=== PATIENT | male | born 1955 | race Caucasian/White ===

== ENCOUNTER 2018-06-12 17:25 | Emergency (ER) | payer SELFPAY ==
[2018-06-12 17:33] VITALS: BP 126/92; PULSE 70; RESP 12; TEMP 36.8; O2SAT 96
--- NOTE | 2018-06-12 18:16 | W.ED.GENAD ---
Discharge Plan Disposition Patient Disposition: HOME Condition: Improving Discharge Details Chief Complaint: GenMedical Clinical Impression: Atypical chest pain Primary Care Provider: Maria L Nolan ED Provider: Heriberto Manuel Home Meds and New Rx's Prescriptions: No Action No Known Home Meds RF: 0 Discharge Instructions Additional Instructions: I reviewed blood work from [facility] that was provided to me that revealed you had a lead venous blood level of 8.1 and 10.0 ug/dL. In adults, levels less than 20 recommend reduced lead exposure and ongoing monitoring. In adults this low level of lead may be due to occupational exposure. The department of Health and Human Services recommended adult lab levels be reduced to 10 or less. As we discussed, you have had a repeat blood level of lead performed today. I have asked our care management team to arrange an outpatient follow-up to establish primary allopathic medical care. They will contact you. Your blood work today revealed a white blood cell count of 6.8, hemoglobin 14.2, hematocrit 42.6, platelets 280. Sodium 139, potassium 3.7, chloride 104, bicarb 23, BUN 15, creatinine 0.9, glucose 94, total bilirubin 0.3, calcium 8.9, AST 23, ALT 39, troponin less than 0.02 Follow-up with primary care, return to the emergency department for any acute concerns or if you develop worsening discomfort in the chest, increased shortness of breath, or any other acute concern. Medical Decision Making Old 7-year-old male presents from home with his partner. 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 He states to me that he had reported blood levels of 8.1 and 10 ug/dL of lead for which he is currently taking 7 supplements. He does note that the lead level dann after beginning of the supplements. 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 He was somewhat agitated and anxious in the clinical office this morning and had an initial blood pressure that was elevated proximally 180/150, reported to be rechecked in the office and normalized, noted to have blood pressure 126/92 at triage. On exam he well-appearing. He is concerned of the cost of some of his work-up today. Due to the presentation with concern for hypertension, chest pressure, potential mild lead toxicity, I recommended chest x-ray, EKG, repeat blood work and referral to establish allopathic care. He wishes to avoid excess costs and declines chest x-ray. Labs are reassuring. Troponin negative, chemistries and CBC unremarkable, send out lab test pending. Patient will be referred to establish allopathic care. He is given the results of this test today. Did not feel, given his wishes to avoid chest x-ray, that there is indication for further work-up at this time. Understands homecare as well as return precautions. ECG Data Attestation: I personally reviewed and interpreted this ECG (s) as follows: Interpretation: Normal sinus rhythm with a rate of 66, the QRS is narrow, there is no ST segment elevation, there are frequent PACs in a bigeminal pattern. HPI General Mode of arrival: ambulatory. Date/Time Provider Initiated Documentation: 06/12/18 17:26. Limitations to Documentation: no limitations. Information obtained by: patient and family. History of Present Illness 62 year old M presents to the emergency department with the chief complaint of Referral from [employer]. Multiple concerns. Intermittent left chest pain, described as mild, Quality is described as dull, and is localized to the chest. Patient reports no radiation. Patient started experiencing this week(s) and it has been intermittent. No relieving factors improve symptom(s), No exacerbating factors reported . Patient notes other (Shortness of breath when carrying 80 pound bags of concrete upstairs). Patient did receive the following treatments prior to arrival, none Related Data Home Medications Medication Instructions Recorded Confirmed Unknown [No Known Home Meds] 06/12/18 06/12/18 Allergies Allergy/AdvReac Type Severity Reaction Status Date / Time codeine Allergy Unverified 06/12/18 17:36 General Stated Complaint: GenMedical FAZAL: 3 Review of Systems Review of Systems Taking 7 supplements from hand mica plate [employer] to lower lead level that was reported in referral blood work to be 8.1 and 10 mcg/dL [facility] Social History Smoking/Tobacco Use Status: Former Tobacco Use Quit Date: 05/23/99 Tobacco: How many years used: 18 Alcohol Intake: current Alcohol Intake frequency: 0-2 drinks per day Alcohol type: beer Drug use: Daily Substance use type: marijuana Do you feel safe at home: Yes Do you feel safe in your relationship?: Yes Exam Narrative Exam Narrative: GEN: awake, alert, oriented 3. Pleasant, well groomed, interactive. HEAD: Normocephalic, atraumatic ENT: Mucous membranes moist, oropharynx unremarkable, External ear exam unremarkable EYES: PERRL, EOMI NECK: Full ROM, no JOSE A, no menigismus CHEST/RESP: Nontender, clear to auscultation bilateral, no wheeze/rhonchi/rales CARDIOVASCULAR: RRR, no murmur, rub katarina. 2+ Rad pulse bilateral ABDOMEN: Soft, nontender, no mass. +Bowel sounds EXT: Full ROM, no edema, no rash Neuro: Grossly normal neurologic exam, conversant, interactive. Psych: Speech fluent, thoughts congruent, affect normal Course Vital Signs Temperature 36.8 C 06/12/18 17:33 Pulse 70 06/12/18 17:33 Respiratory Rate 12 06/12/18 17:33 Blood Pressure 126/92 H 06/12/18 17:33 Pulse Oximetry 96 06/12/18 17:33 Temperature 36.8 C 06/12/18 17:33 Temperature Source Temporal Artery Scan 06/12/18 17:33 Pulse 70 06/12/18 17:33 Respiratory Rate 12 06/12/18 17:33 Blood Pressure 126/92 H 06/12/18 17:33 Blood Pressure Position Sitting 06/12/18 17:33 Pulse Oximetry 96 06/12/18 17:33 Oxygen Delivery Method Room Air 06/12/18 17:33 Oxygen Flow Rate 0 06/12/18 17:33 Pain Level 6 06/12/18 17:33
--- NOTE | 2018-06-12 18:20 | ED.GENADUL_ITS ---
Discharge Plan Disposition Patient Disposition: HOME Condition: Improving Discharge Details Chief Complaint: GenMedical Clinical Impression: Atypical chest pain Primary Care Provider: Maria L Nolan ED Provider: Heriberto Manuel Home Meds and New Rx's Prescriptions: No Action No Known Home Meds RF: 0 Discharge Instructions Additional Instructions: I reviewed blood work from [employer] that was provided to me that revealed you had a lead venous blood level of 8.1 and 10.0 ug/dL. In adults, levels less than 20 recommend reduced lead exposure and ongoing monitoring. In adults this low level of lead may be due to occupational exposure. The department of Health and Human Services recommended adult lab levels be reduced to 10 or less. As we discussed, you have had a repeat blood level of lead performed today. I have asked our care management team to arrange an outpatient follow-up to establish primary allopathic medical care. They will contact you. Your blood work today revealed a white blood cell count of 6.8, hemoglobin 14.2, hematocrit 42.6, platelets 280. Sodium 139, potassium 3.7, chloride 104, bicarb 23, BUN 15, creatinine 0.9, glucose 94, total bilirubin 0.3, calcium 8.9, AST 23, ALT 39, troponin less than 0.02 Follow-up with primary care, return to the emergency department for any acute concerns or if you develop worsening discomfort in the chest, increased shortness of breath, or any other acute concern. Medical Decision Making Old 7-year-old male presents from home with his partner. 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 He states to me that he had reported blood levels of 8.1 and 10 ug/dL of lead for which he is currently taking 7 supplements. He does note that the lead level dann after beginning of the supplements. 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 He was somewhat agitated and anxious in the clinical office this morning and had an initial blood pressure that was elevated proximally 180/150, reported to be rechecked in the office and normalized, noted to have blood pressure 126/92 at triage. On exam he well-appearing. He is concerned of the cost of some of his work-up today. Due to the presentation with concern for hypertension, chest pressure, potential mild lead toxicity, I recommended chest x-ray, EKG, repeat blood work and referral to establish allopathic care. He wishes to avoid excess costs and declines chest x-ray. Labs are reassuring. Troponin negative, chemistries and CBC unremarkable, send out lab test pending. Patient will be referred to establish allopathic care. He is given the results of this test today. Did not feel, given his wishes to avoid chest x-ray, that there is indication for further work-up at this time. Understands homecare as well as return precautions. ECG Data Attestation: I personally reviewed and interpreted this ECG (s) as follows: Interpretation: Normal sinus rhythm with a rate of 66, the QRS is narrow, there is no ST segment elevation, there are frequent PACs in a bigeminal pattern. HPI General Mode of arrival: ambulatory . Date/Time Provider Initiated Documentation: 06/12/18 17:26 . Limitations to Documentation: no limitations . Information obtained by: patient and family . History of Present Illness 62 year old M presents to the emergency department with the chief complaint of Referral from [facility]. Multiple concerns. Intermittent left chest pain, described as mild, Quality is described as dull, and is localized to the [facility] [facility]. Patient reports no radiation. Patient started experiencing this week(s) and it has been intermittent. No relieving factors improve symptom(s), No exacerbating factors reported . Patient notes other (Shortness of breath when carrying 80 pound bags of concrete upstairs). Patient did receive the following treatments prior to arrival, none Related Data Home Medications Medication Instructions Recorded Confirmed Unknown [No Known Home Meds] 06/12/18 06/12/18 Allergies Allergy/AdvReac Type Severity Reaction Status Date / Time codeine Allergy Unverified 06/12/18 17:36 General Stated Complaint: GenMedical FAZAL: 3 Review of Systems Review of Systems Taking 7 supplements from cut in worker to lower lead level that was reported in referral blood work to be 8.1 and 10 mcg/dL [facility] Social History Smoking/Tobacco Use Status: Former Tobacco Use Quit Date: 05/23/99 Tobacco: How many years used: 18 Alcohol Intake: current Alcohol Intake frequency: 0-2 drinks per day Alcohol type: beer Drug use: Daily Substance use type: marijuana Do you feel safe at home: Yes Do you feel safe in your relationship?: Yes Exam Narrative Exam Narrative: GEN: awake, alert, oriented 3. Pleasant, well groomed, intera ctive. HEAD: Normocephalic, atraumatic ENT: Mucous membranes moist, oropharynx unremarkable, External ear exam unremarkable EYES: PERRL, EOMI NECK: Full ROM, no JOSE A, no menigismus CHEST/RESP: Nontender, clear to auscultation bilateral, no wheeze/rhonchi/rales CARDIOVASCULAR: RRR, no murmur, rub katarina. 2+ Rad pulse bilateral ABDOMEN: Soft, nontender, no mass. +Bowel sounds EXT: Full ROM, no edema, no rash Neuro: Grossly normal neurologic exam, conversant, interactive. Psych: Speech fluent, thoughts congruent, affect normal Course Vital Signs Temperature 36.8 C 06/12/18 17:33 Pulse 70 06/12/18 17:33 Respiratory Rate 12 06/12/18 17:33 Blood Pressure 126/92 H 06/12/18 17:33 Pulse Oximetry 96 06/12/18 17:33 Temperature 36.8 C 06/12/18 17:33 Temperature Source Temporal Artery Scan 06/12/18 17:33 Pulse 70 06/12/18 17:33 Respiratory Rate 12 06/12/18 17:33 Blood Pressure 126/92 H 06/12/18 17:33 Blood Pressure Position Sitting 06/12/18 17:33 Pulse Oximetry 96 06/12/18 17:33 Oxygen Delivery Method Room Air 06/12/18 17:33 Oxygen Flow Rate 0 06/12/18 17:33 Pain Level 6 06/12/18 17:33
[2018-06-12 18:25] VITALS: RESP 12
[2018-06-12 19:02] LABS: Abs Immature Grans 0.02 k/cumm (0.0-0.09); Absolute Basophil Count 0.06 k/cumm (0.0-0.2); Absolute Eosinophil Count 0.27 k/cumm (0.0-0.7); Absolute Monocyte Count 0.65 k/cumm (0.11-0.7); Absolute Neutrophil Count 3.86 k/cumm (1.2-6.7); Basophils % 0.9; Eosinophils % 3.9; HCT 42.6 % (40.0-50.0); HGB 14.2 g/dL (13.5-17.5); Immature Grans % 0.3; Lymphocytes % 29.2; Mean Corp. HGB Concentration 33.3 g/dL (32.0-36.0); Mean Corpuscular Hemoglobin 29.7 pg (27.0-33.0); Mean Corpuscular Volume 89.1 fL (80-95); Monocytes % 9.5; Neutrophils % 56.2; Platelet Count 280 x1000/uL (130-400); RBC 4.78 m/cumm (4.50-6.00); RBC Distribution Width 12.5 % (11.8-14.1); White Blood Cell Count 6.86 k/cumm (4.4-10.8)
[2018-06-12 19:04] VITALS: BP 139/76; PULSE 71; RESP 18; TEMP 37.2; O2SAT 95
[2018-06-12 19:15] LABS: ALT 39 U/L (12-78); AST 23 U/L (15-37); Albumin 3.9 g/dL (3.4-5.0); Alkaline Phosphatase 59 U/L (46-116); Anion Gap 11.2 mmol/L (3-11); BUN 15 mg/dL (7-18); Bilirubin, Total 0.3 mg/dL (0.2-1.0); CO2 23.8 mmol/L (21.0-32.0); Calcium 8.9 mg/dL (8.5-10.1); Chloride 104 mmol/L (98-107); Glucose 94 mg/dL (70-100); Potassium 3.7 mmol/L (3.5-5.1); Sodium 139 mmol/L (136-145); Total Protein 7.2 g/dL (6.4-8.2)
[2018-06-12 19:19] LABS: Troponin I < 0.02 ng/mL (0.00-0.06)
== END 2018-06-12 19:50 | disposition home or self-care (01) ==
PROVIDERS: Emergency Provider Emergency Medicine; PCP Naturopath
DX: R07.89 Other chest pain (principal); R06.02 Shortness of breath; R78.71 Abnormal lead level in blood
CPT/HCPCS: 36415; 80053; 93005; 99284; 83655; 84484; 85025; 93010

== ENCOUNTER → 2022-12-06 16:44 | Outpatient (CLI) | payer MEDICARE, SELFPAY ==
--- NOTE | 2022-12-06 15:15 | DI.RAD_ITS ---
Exam(s) XR SHOULDER RT COMPLETE 2+V EXAM: XR SHOULDER RT COMPLETE 2+V CLINICAL HISTORY: RT SHOULDER PAIN, M25.511. TECHNIQUE: 2D digital imaging was performed of the right shoulder. Five images were obtained. AP, Grashey, Y-view and axillary views were obtained. COMPARISON: No exams were available for comparison FINDINGS: BONES: No acute fracture is present. No bony destructive lesion is seen. JOINTS: No dislocation present. There is mild spurring at the inferior glenoid. There acromioclavicu lar joint is well maintained. SOFT TISSUE: Normal. IMPRESSION: Mild degenerative changes seen at the glenohumeral joint. DATA REPOSITORY: RADIATION DOSE DELIVERED:
--- NOTE | 2022-12-06 15:15 | DI.RAD_ITS ---
Exam(s) XR SHOULDER LT COMPLETE 2+V EXAM: XR SHOULDER LT COMPLETE 2+V CLINICAL HISTORY: LT SHOULDER PAIN, M25.512. TECHNIQUE: 2D digital imaging was performed of the left shoulder. Five images were obtained. AP, G rashey, Y-view and axillary views were obtained. COMPARISON: No exams were available for comparison FINDINGS: BONES: No acute fracture is present. No bony destructive lesion is seen. There is mild spurring at th e humeral head. JOINTS: No dislocation present. The glenohumeral joint and acromioclavicular joint are unremarkable. SOFT TISSUE: Normal. IMPRESSION: No acute fracture or dislocation. If there is concern for internal derangement, an MRI should be con sidered for further evaluation. DATA REPOSITORY: RADIATION DOSE DELIVERED:
== END ==
PROVIDERS: PCP Naturopath; Visit Provider Family Medicine
DX: M25.512 Pain in left shoulder (principal); M25.511 Pain in right shoulder
CPT/HCPCS: 73030

== ENCOUNTER 2023-08-03 22:33 | Outpatient (REF) | payer MEDICARE, SELFPAY ==
[2023-08-03 22:43] LABS: HCT 47.8 % (40.0-50.0); HGB 15.8 g/dL (13.5-17.5); MCH 30.4 pg (27.0-33.0); MCHC 33.1 % (32.0-36.0); MCV 92 fL (80-95); MPV 9.6 fL (8.0-11.0); Platelet Count 353 10^3/uL (130-400); RBC 5.19 10^6/uL (4.36-5.78); RDW 12.2 % (11.8-14.1); RDW-SD 41.2 fL; WBC 16.03 10^3/uL (4.4-10.8)
[2023-08-03 22:59] LABS: Hemoglobin A1C 5.7 % (<5.7)
[2023-08-03 23:07] LABS: ALT 33 U/L (16-63); AST 18 U/L (15-37); Absolute Eosinophil Count 0.64 10^3/uL (0.0-0.7); Absolute Lymphocyte Count 2.56 10^3/uL (1.2-3.4); Absolute Monocyte Count 2.08 10^3/uL (0.1-0.8); Absolute Neutrophil Count 10.74 10^3/uL (1.2-6.7); Albumin 4.1 g/dL (3.4-5.0); Alkaline Phosphatase 76 U/L (46-116); Anion Gap 13.1 mmol/L (3-11); Atypical Lymphocytes % 2 %; BUN 10 mg/dL (7-18); Bilirubin, Total 0.9 mg/dL (0.2-1.0); CO2 23.9 mmol/L (21.0-32.0); CREATININE 0.9 mg/dL (0.70-1.30); Calcium 9.6 mg/dL (8.5-10.1); Chloride 100 mmol/L (98-107); Diff Comment Manual Differential; Estimated GFR 94.19 (mL/min/1.73m2); Glucose 121 mg/dL (74-106); Potassium 4.3 mmol/L (3.5-5.1); RBC Morphology Normal; Sodium 137 mmol/L (136-145); TSH (W/Ref FT4) 1.02 uIU/mL (0.36-3.74); Total Protein 7.6 g/dL (6.4-8.2)
== END 2023-08-03 22:34 | disposition home or self-care (01) ==
LOC: NCHCN 22:33
PROVIDERS: PCP Naturopath; Visit Provider Physician Assistant Medical
DX: R10.9 Unspecified abdominal pain (principal)
CPT/HCPCS: 80053; 83036; 84443; 85025

== ENCOUNTER → 2023-08-04 00:20 | Outpatient (CLI) | payer MEDICARE, SELFPAY ==
--- NOTE | 2023-08-04 | DI.CT_ITS ---
Exam(s) CT ABDOMEN PELVIS W EXAM: CT ABDOMEN PELVIS W CLINICAL HISTORY: R10.9 Unspecified abd pain TECHNIQUE: Imaging Protocol: Axial computed tomography images with coronal and sagittal reformatted images were created and reviewed. CONTRAST MATERIAL: Intravenous: Omnipaque 350 Contrast volume:100 mL Oral: Yes COMPARISON: No exams were available for comparison FINDINGS: ABDOMEN: Lung Bases: There is dependent atelectasis present. No focal consolidating infiltrates are seen. Liver: Normal density. There are several simple hepatic cysts. No suspicious hepatic masses are pres ent. Portal, Superior Mesenteric, and Splenic Veins: Unremarkable. Gallbladder and Biliary Tract: No radiodense calculus or dilation. Pancreas: Normal density, no abnormal calcifications or inflammatory process. Spleen: There are few tiny hypodensities in the spleen. These may represent small cysts or hemangiom as. Adrenals: No masses seen. Kidneys: Normal size, contour and axis. No radiodense stones or obstructive uropathy. There are tiny hypodensities seen in the kidneys bilaterally likely reflecting cysts. No follow-up is recommended. Abdominal Aorta: Abdominal portion non-dilated. Atherosclerotic calcification is present. Bowel: There are diverticula seen in the colon. There is bowel wall thickening seen in the mid sigmo id colon with pericolonic inflammatory changes most consistent with acute diverticulitis. There is n o evidence of bowel obstruction. No evidence of appendicitis. Peritoneal Cavity: No ascites, collection or mesenteric inflammatory response. No free air. Lymph Nodes: Within normal limits. Bones: Within normal limits for the patient's age. Soft Tissues: Unremarkable. PELVIS: Bladder: There is diffuse wall thickening of the urinary bladder. Reproductive Organs: The prostate gland is enlarged. Lymph Nodes: Within normal limits. Bones: Within normal limits for the patient's age. IMPRESSION: 1. Findings most suggestive of acute diverticulitis of the mid sigmoid colon. No abscess or free air . A follow-up CT scan is recommended to document resolution and to exclude underlying process such a s neoplasm. 2. Diffuse thickening of the wall of the urinary bladder. This may reflect inflammation from the adj acent diverticulitis. This may also be due to underdistention. Unexpected findings RADIATION DOSE DELIVERED: Total DLP DATA REPOSITORY: All CT scans at this facility are submitted to the National Radiology Data Registry (NRDR) Dose Index Registry (DIR) with the [employer] (ACR). RADIATION OPTIMIZATION: All CT scans at this facility use at least one of these dose optimization te chniques: automated exposure control; mA and/or kV adjustment per patient size (includes targeted exa ms where dose is matched to clinical indication); or iterative reconstruction.
--- NOTE | 2023-08-04 | DI.RAD_ITS ---
Exam(s) XR CHEST 2V PA LATERAL EXAM: XR CHEST 2V PA LATERAL CLINICAL HISTORY: J98.01 Acute Bronchospasm TECHNIQUE: 2D digital imaging was performed of the chest. Two images were obtained. PA and lateral views were obtained. COMPARISON: No exams were available for comparison FINDINGS: MEDIASTINUM: Normal. HEART: Normal. PULMONARY VASCULATURE: Normal. LUNGS: Clear. PLEURAL SPACE: No pleural effusion or pneumothorax. BONE:Within normal limits for the patient's age. OTHER FINDINGS:Normal. IMPRESSION: No acute pulmonary findings. DATA REPOSITORY: RADIATION DOSE DELIVERED:
[2023-08-04] MEDS: Normal Saline - Diluent 50 ML VIAL IJ (10:27)
[2023-08-04] MEDS: Omnipaque 350 MG/ML 500 ML BTL-Imaging package IJ (10:27)
[2023-08-04] MEDS: Barium Sulfate 2% W/V-Berry Smoothie 450 ML BTL PO ×2 (10:38→10:39)
== END ==
PROVIDERS: PCP Naturopath; Visit Provider Physician Assistant Medical
DX: J98.01 Acute bronchospasm (principal); R10.9 Unspecified abdominal pain
CPT/HCPCS: 71046; 74177

== ENCOUNTER → 2023-08-23 02:09 | Outpatient (CLI) | payer MEDICARE, SELFPAY ==
--- NOTE | 2023-08-23 | DI.CT_ITS ---
Exam(s) CT ABDOMEN PELVIS W EXAM: CT ABDOMEN PELVIS W CLINICAL HISTORY: ABD PAIN, R10.9. TECHNIQUE: Imaging Protocol: Axial computed tomography images with coronal and sagittal reformatted images were created and reviewed CONTRAST MATERIAL: Intravenous: Omnipaque-350 100cc Oral: Yes. Oral contrast was also administered for bowel opacification. COMPARISON: CT CT ABDOMEN PELVIS W from 08/04/2023 FINDINGS: VISUALIZED LUNG BASES: No nodules nor pleural effusions evident. ABDOMEN: There is no ascites. LIVER: Benign cysts in the liver again noted. No evidence of intrahepatic abscess. No dilated intra hepatic ducts. GALLBLADDER/BILIARY: No obvious gallbladder pathology. CBD is not dilated. PANCREAS: No evidence of pancreatic mass nor dilatation of the pancreatic duct. SPLEEN: Spleen is not enlarged. No obvious intrasplenic lesions. Splenic and portal veins are paten t. ADRENALS: There are no significant adrenal masses. KIDNEYS:No cysts evident. No solid renal masses. No calculi nor hydronephrosis.. ABDOMINAL AORTA: Abdominal aorta is not enlarged. LYMPH NODES:There is no retroperitoneal nor paraaortic adenopathy. ABDOMINAL WALL: No evidence of significant anterior abdominal wall nor inguinal hernia. GI: There is extensive diverticulosis of the sigmoid again noted but there has been significant impro vement in the appearance of the area of the sigmoid involved with acute diverticulitis as seen on the CT scan of 08/04/2023. The amount of wall thickening and surrounding inflammation has significantly decreased and there is no evidence of abscess. The wall of the urinary bladder is again noted be uniformly thickened but there is no evidence to sug gest fistulous communication between the urinary bladder and the area which was involved with acute d iverticulitis on the scan of 08/04/2023 (which now appears improved). PELVIS: GI: No evidence of appendicitis. LYMPH NODES: There is no intrapelvic nor inguinal adenopathy. REPRODUCTIVE: Prostate is again noted to be enlarged. No vesicles unremarkable. There is no obturat or adenopathy. URINARY BLADDER: Uniformly thickened wall. No diverticuli.. OSSEOUS: No fractures and no significant osseous lesions. IMPRESSION: 1. Compared to the prior CT scan of 08/04/2023 there has been significant improvement in the acute di verticulitis of the sigmoid which was evident at that time. There is still extensive sigmoid diverti culosis but the acute diverticulitis has significantly improved and there is no evidence of free air nor abscess nor evidence of fistulous communication to the adjacent urinary bladder. There is no gas within the portal venous system and no evidence of abscess within the liver, realizing that divertic ulitis is the most common cause of liver abscesses in [place]. 2. Other findings as above. RADIATION DOSE DELIVERED: 636.47mGy.cm Total DLP DATA REPOSITORY: All CT scans at this facility are submitted to the National Radiology Data Registry (NRDR) Dose Index Registry (DIR) with the [employer] (ACR). RADIATION OPTIMIZATION: All CT scans at this facility use at least one of these dose optimization te chniques: automated exposure control; mA and/or kV adjustment per patient size (includes targeted exa ms where dose is matched to clinical indication); or iterative reconstruction.
[2023-08-23] MEDS: Barium Sulfate 2% W/V-Creamy Vanilla Smoothie 450 ML BTL PO ×2 (09:22→09:23)
[2023-08-23] MEDS: Normal Saline - Diluent 50 ML VIAL IJ (09:29)
[2023-08-23] MEDS: Omnipaque 350 MG/ML 500 ML BTL-Imaging package IJ (09:29)
== END ==
PROVIDERS: PCP Naturopath; Visit Provider Physician Assistant Medical
DX: R10.9 Unspecified abdominal pain (principal)
CPT/HCPCS: 74177

== ENCOUNTER → 2023-08-24 07:52 | Outpatient (BNVA) | payer MEDICARE, SELFPAY | PROVIDERS: PCP Naturopath; Referring Provider Naturopath; Visit Provider Physician Assistant Surgical | DX: J98.01 Acute bronchospasm (principal); R06.00 Dyspnea, unspecified | CPT/HCPCS: 99205 ==

== ENCOUNTER 2023-09-19 18:35 | Outpatient (REF) | payer MEDICARE, SELFPAY | END 2023-09-19 18:36 | disposition home or self-care (01) | LOC: NCHCN 18:35 | PROVIDERS: PCP Naturopath; Visit Provider Family Medicine | DX: R10.30 Lower abdominal pain, unspecified (principal); R82.998 Other abnormal findings in urine | CPT/HCPCS: 87086 ==

== ENCOUNTER 2023-11-02 14:19 | Emergency (ER) | payer MEDICARE, SELFPAY ==
[2023-11-02] VITALS (9 sets, daily range): BP systolic 122–148; BP diastolic 74–82; PULSE 58–86; RESP 12–28; TEMP 36.4; O2SAT 95–97
--- NOTE | 2023-11-02 14:22 | W.ED.GENAD ---
Discharge Plan Disposition Patient Disposition: Home Condition: Good Discharge Details Clinical Impression: Blunt trauma of abdominal wall, Traumatic ecchymosis of abdominal wall Primary Care Provider: Maria L Nolan ED Provider: Gregor Mena Home Meds and New Rx's Prescriptions: No Action No Known Home Meds Discharge Instructions Instructions: Blunt Abdominal Trauma ED Additional Instructions: You were seen in the ED after a blow to the abdomen. Laboratory studies and imaging studies are reassuring and injury is isolated to the abdominal wall. There is no evidence of internal organ damage. Ice on and off for the next few days and alternate acetaminophen with ibuprofen. Follow-up with primary care next week if not improving. You should return to the ED for any difficulty breathing, syncope, worsening abdominal pain, other concerns. Referrals: Maria L Nolan [Primary Care Provider] - [facility] General Mode of arrival: wheelchair. Date/Time Provider Initiated Documentation: 11/02/23 14:22. Limitations to Documentation: no limitations. Information obtained by: patient and RN notes reviewed. HPI Narrative: Patient presents to ED with abdominal pain after being struck in the right upper abdomen by board kicked back from a table saw. Injury occurred about 1 hour ago. He already has imprint from the board on his abdomen with associated swelling and ecchymosis. He has difficulty taking a breath because of pain. Denies any significant past medical history. He is not on any medications. Denies any injury to head and neck area or extremities. Related Data Home Medications ?Medication ?Instructions ?Recorded ?Confirmed Unknown [No Known Home Meds] 08/24/23 11/02/23 Allergies Allergy/AdvReac Type Severity Reaction Status Date / Time codeine Allergy vomiting Unverified 11/02/23 14:33 General FAZAL: 3 Review of Systems Narrative: Per HPI Exam Narrative Exam Narrative: Const: WDWN male in NAD. VS per triage. HEENT: NC/AT. Normal facial exam. Neck: Supple. Trachea midline. Lungs: Normal respiratory effort. Lungs are clear. Cor: RRR without murmur. Good radial pulses. GI: Soft/ND. Tender in RUQ over area with bruising, swelling. No peritoneal signs. Neuro: A+O x 3. Normal speech, mentation, gait. Cranial nerves II - XII grossly intact. No gross motor or sensory deficit. Ext: No C/C/E. Medical Decision Making Patient presenting to ED with blunt force trauma to the upper abdomen and right upper quadrant. Bruising and swelling already present in the abdominal wall. Concern for liver injury, bowel injury, diaphragmatic injury. IV established and fluids started. Patient declines anything for pain other than IV acetaminophen. Laboratory studies sent. CT scan of the thorax ordered. Patient's laboratory studies are unremarkable. CT of the abdomen pelvis per final radiology read with no acute traumatic injury. Injury is all related to the abdominal wall with bruising and ecchymosis. Discussed with patient. Recommend ice on and off, alternating acetaminophen with ibuprofen, follow-up with primary care next week if not improving. Activity as tolerated. Return precautions provided. Lab Data Lab results reviewed: Yes I reviewed the patient's lab results. 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 History of appendectomy Hx of cataract surgery Hx of hernia repair Family History (Updated 08/11/23 @ 11:35 by Eve Carrillo) Mother Diabetes type 2 Hypertension Father Leukemia Family history of polycythemia vera Other ETOHism FHx: mental illness Social History Smoking/Tobacco Use Status: Former Tobacco Use Quit Date: 05/23/99 Tobacco: How many years used: 18 Smoking risk assessment performed?: Yes Alcohol Intake: current Alcohol Intake frequency: 0-2 drinks per day Alcohol type: beer Drug use: Daily Substance use type: marijuana Housing: house 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 Do you feel safe at home: Yes Do you feel safe in your relationship?: Yes
--- NOTE | 2023-11-02 14:30 | DI.CT_ITS ---
Exam(s) CT CHEST/ABD/PEL W EXAM: CT CHEST/ABD/PEL W CLINICAL HISTORY: blunt upper abdominal trauma. TECHNIQUE: Imaging Protocol: Axial computed tomography images with coronal and sagittal reformatted images were created and reviewed CONTRAST MATERIAL: Intravenous: Omnipaque 350 Contrast volume:100 ml Oral: / no COMPARISON: CR XR CHEST 2V PA LATERAL from 08/04/[address] ABDOMEN PELVIS W from 08/23/2023 FINDINGS: CHEST: Tracheobronchial tree: Patent. Pulmonary parenchyma: No consolidation or dominant measurable mass. Small focal area of scarring in noted inferior lingular posterior dependent changes. No visible contusion. Pleura: No effusion or pneumothorax. Mediastinum: Within normal limits. Aorta: Thoracic portion non-dilated. Pulmonary arteries: No visible emboli. Heart: No pericardial effusion. Bones: Unremarkable for age. Degenerative changes in the spine.. No lytic or blastic lesions.No com pression fractures. A subacute appearing fractures of the left 6 through 9th ribs. No acute rib fra ctures visible. No sternal fracture. Soft tissues: Unremarkable. ABDOMEN and PELVIS: Liver: Normal density. Several liver cysts noted. No follow-up recommended. No suspicious mass. Gallbladder and biliary tract: No evidence of stones or wall thickening. No biliary dilatation. Pancreas: Normal density, no abnormal calcifications or inflammatory process. Spleen: Normal. Kidneys: Normal size, contour and axis. No radiodense stones. No obstructive uropathy. No suspicious masses seen. Adrenal glands: No masses seen. Aorta: Abdominal portion non-dilated. Lymph nodes: Within normal limits. Soft tissues: Unremarkable. Bladder: Unremarkable. Bowel: No obstruction or bowel wall thickening. Diverticulosis. No evidence of diverticulitis. Ch est Peritoneal cavity: No ascites. No focal collection. No mesenteric inflammatory response. No free ai r. Bones: No evidence of spine or pelvic fracture. Degenerative changes noted greatest at L5-S1. Reproductive organs: Within normal limits. IMPRESSION: No acute abnormality in the chest, abdomen or pelvis. RADIATION DOSE DELIVERED: 287.51mGy.cm Total DLP DATA REPOSITORY: All CT scans at this facility are submitted to the National Radiology Data Registry (NRDR) Dose Index Registry (DIR) with the [employer] ([employer]). RADIATION OPTIMIZATION: All CT scans at this facility use at least one of these dose optimization te chniques: automated exposure control; mA and/or kV adjustment per patient size (includes targeted exa ms where dose is matched to clinical indication); or iterative reconstruction.
[2023-11-02 14:45] LABS: HCT 44.8 % (40.0-50.0); HGB 14.9 g/dL (13.5-17.5); MCH 30.2 pg (27.0-33.0); MCHC 33.3 % (32.0-36.0); MCV 91 fL (80-95); MPV 8.6 fL (8.0-11.0); Platelet Count 329 10^3/uL (130-400); RBC 4.94 10^6/uL (4.36-5.78); RDW 12.1 % (11.8-14.1)
[2023-11-02] MEDS: ACETAMINOPHEN 1,000 MG/100 ML BTL 400 MG IVPB (14:49)
[2023-11-02] MEDS: Lactated Ringers 1,000 ML 1000 ML IV (14:52)
[2023-11-02 14:58] LABS: Prothrombin Time 10.2 sec (9.1-11.1)
--- OUTSIDE RECORDS SUMMARY | 2023-11-02 14:58 | XMS_ITS | Data Portability ---
Author Organization [facility] Address [address] [place] [address] Assessment Encounter Date Assessment Date Assessment LastModified by Organization Details LastModified Time 09/19/2023 09/19/2023 - declines labs today - declines vaccines - A1C 5.7% 07/2023 [email or web address] Not available 09/19/2023 17:46:52 Plan of Treatment Reminders Order Date Submit Date Provider Last Modified By Organization Details Last Modified Time Details Appointments None recorded. Lab CBC w/ auto diff 2023 024 PEDRO Not available 4 23:10:50 CMP, serum or plasma 2023 024 PEDRO Not available 4 23:09:42 TSH, serum, reflex free T4 2023 024 PEDRO Not available 4 08:35:02 HbA1c (hemoglobi n A1c), blood 2023 024 PEDRO Not available 4 08:34:54 urinalysis , dipstick 2023 024 [email or web address] [facility], [address], [place], [address], 4 17:47:50 culture, urine + sensitivit y 2023 024 [place] n21 [facility] (Registration ), [address] [place] [address] [place], [address], 4 07:32:41 Referral pulmonolog ist referral 2023 024 [facility], [address], [place], [address], 4 17:00:28 physical therapist referral - Patient has been experienci ng bilateral shoulder pain after fall 2 quezada ago. Reports underlying rotator cuff injury. Not ready to have surgical interventi on, would like to explore other physical therapy options 2023 024 [facility], [address], [address], [place], [address], 4 07:41:56 gastroente rologist referral - pt is due for colonoscop y and may benefit from EGD for dysphagia evaluation at same time - previous GI records not available. 2023 024 [facility], [address], [address], [place], [address], 4 08:00:58 urologist referral 2023 024 [place] n21 [facility], [address], [address], [place], [address], 4 07:06:51 Procedures None recorded. Surgeries None recorded. Imaging XR, chest, 2 view 2023 024 [facility], [address], [place], [address], 4 08:34:39 CT, abdomen + pelvis, w/ contrast 2023 024 [facility], [address], [place], [address], 4 13:02:00 Medication Orders albuterol sulfate 2.5 mg/3 mL (0.083 %) solution for nebulizati on 2023 024 Not available 13:05:02 albuterol sulfate HFA 90 mcg/actuat ion aerosol inhaler 2023 024 PEDRO [facility], [address] [place], [address], 4 13:05:20 albuterol sulfate 2.5 mg/3 mL (0.083 %) solution for nebulizati on 2023 024 Not available 13:05:02 amoxicilli n 875 mg-potassi um clavulanat e 125 mg tablet 2023 024 PEDRO [facility], [address] [place], [address], 13:05:26 Patient TargetsNo targets recorded. Patient Instructions Encounter Date Encounter Id Patient Instructions Last Modified By Organization Details Last Modified Time 08/03/2023 [id number] 1. Please continue to push fluids and laxatives as well as fruit and fiber in an attempt to help move bowel. If abdominal pain is increasing, you are not able to have bowel movement or you are not able to return to eating without vomiting you will need to go to the emergency department for further evaluation. 2. It is your hope that you will not need to go to the emergency department. If things are not improving yet have not worsened we should get a CT scan for further evaluation. I have ordered that on an outpatient basis and you should expect the imaging department to contact you to arrange a time to do the CT scan and the chest x-ray. Please remember the only caveat to all of this is with any degree of worsening you need to not hesitate to go to the emergency department. Sometimes these can result in a obstruction further up requiring surgical intervention 3. While here you were given a nebulized albuterol treatment and I have sent prescription for an albuterol inhaler and spacer to your pharmacy. You can use this every 4 hours as needed for coughing fits, shortness of breath or wheeze. I have also ordered a chest x-ray and I expect will have results tomorrow. Once I have these available for review we will be able to determine if you can wait to see the primary care for follow-up or if we need to send referral to pulmonology. 4. Blood work obtained today will have results tomorrow. You should expect to hear from me to go over those. These are some basic screening labs she will need to get some additional labs with primary care. 5. I have also sent referral to physical therapy to help address some of the shoulder pain. This is at the [facility]. [email or web address] Not available 08/03/2023 16:35:21 Reason for Referral Physical Therapist Referral for Bilateral shoulder joint pain Patient has been experiencing bilateral shoulder pain after fall 2 quezada ago. Reports underlying rotator cuff injury. Not ready to have surgical intervention, would like to explore other physical therapy options Referring Physician: Maricarmen Sanchez [facility], Encounter Date: 08/03/2023 Director News Referral for B ronchospasm Referring Physician: Maricarmen Sanchez [facility], Encounter Date: 08/03/2023 Urologist Referral for Blood in urine Referring Physician: Vicky Crystal [facility], Encounter Date: 09/19/2023 Marketing Strategist Referral for Dysphagia pt is due for colonoscopy and may benefit from EGD for dysphagia evaluation at same time - previous GI records not available. Referring Physician: Vicky Crystal [facility], Encounter Date: 09/19/2023 Results Created Date Observation Date Name Description Value Unit Range Abnormal Flag Note LastModifiedBy Organization Detail LastModifiedTime 08/03/19 24 08/03/2023 HEMOG LOBIN A1C hemoglobin A1C 5.7 % <5.7 Refer ence Range s <5.7 Jennifer l 5.7-6 .4% Predi abete s 6.5% or great er Diagn ostic for diabe ginger (if confi rmed) Refer ences : 1. Ameri can Diabe ginger Assoc iatio n. Clas sific ation and Diagn osis of Diabe ginger. Diabe ginger Care 2019 Feb;4 2(Sup pleme nt 1):S1 3-s28 . Not Available [facility] [address] [place] [address] [place], [address], 08/03/2023 23:03:36 08/03/19 24 08/03/2023 COMPR EHENS CARLI METAB OLIC PANEL calcium 9.6 mg/dL 8.5-10 .1 normal Not Available [address] [place], [address] 08/03/2023 23:09:42 08/03/19 24 08/03/2023 COMPR EHENS CARLI METAB OLIC PANEL glucose 121 mg/dL 74-106 high Not Available Anamaria du [address] [place], [address] 08/03/2023 23:09:42 08/03/19 24 08/03/2023 COMPR EHENS CARLI METAB OLIC PANEL BUN 10 mg/dL 7-18 normal Not Available Anamaria du [address] [place], [address] 08/03/2023 23:09:42 08/03/19 24 08/03/2023 COMPR EHENS CARLI METAB OLIC PANEL creatinine 0.9 mg/dL 0.70-1 .30 normal Not Available [address] [place], [address] 08/03/2023 23:09:42 08/03/19 24 08/03/2023 COMPR EHENS CARLI METAB OLIC PANEL estimated GFR 94.19 mL/min /1.73m 2 The eGFR is calcu lated from a serum creat inine using the CKD-E PI 2020 equat ion. Other varia bles requi red for the equat ion are gende r and age; this equat ion does not inclu de a race coeff icien t. This equat ion has simil ar overa ll perfo rmanc e to previ ous equat ions excep t value s may diffe r, in parti cular , in patie nts with highe r value s of eGFR and young er-ag ed adult s. Not Available [address] [place], [address] 08/03/2023 23:09:42 08/03/19 24 08/03/2023 COMPR EHENS CARLI METAB OLIC PANEL total protein 7.6 g/dL 6.4-8. 2 normal Not Available [address] [place], [address] 08/03/2023 23:09:42 08/03/19 24 08/03/2023 COMPR EHENS CARLI METAB OLIC PANEL albumin 4.1 g/dL 3.4-5. 0 normal Not Available [address] [place], [address] 08/03/2023 23:09:42 08/03/19 24 08/03/2023 COMPR EHENS CARLI METAB OLIC PANEL bilirubin, total 0.9 mg/dL 0.2-1. 0 normal Not Available [address] [place], [address] 08/03/2023 23:09:42 08/03/19 24 08/03/2023 COMPR EHENS CARLI METAB OLIC PANEL alk phos 76 U/L 46-116 normal Not Available [address] [place], [address] 08/03/2023 23:09:42 08/03/19 24 08/03/2023 COMPR EHENS CARLI METAB OLIC PANEL sodium 137 mmol/ L 136-14 5 normal Not Available [address] [place], [address] 08/03/2023 23:09:42 08/03/19 24 08/03/2023 COMPR EHENS CARLI METAB OLIC PANEL potassium 4.3 mmol/ L 3.5-5. 1 normal Not Available [address] [place], [address] 08/03/2023 23:09:42 08/03/19 24 08/03/2023 COMPR EHENS CARLI METAB OLIC PANEL chloride 100 mmol/ L 98-107 normal Not Available [address] [place], [address] 08/03/2023 23:09:42 08/03/19 24 08/03/2023 COMPR EHENS CARLI METAB OLIC PANEL CO2 23.9 mmol/ L 21.0-3 2.0 normal Not Available [address] [place], [address] 08/03/2023 23:09:42 08/03/19 24 08/03/2023 COMPR EHENS CARLI METAB OLIC PANEL anion gap 13.1 mmol/ L 3-11 high Not Available [address] [place], [address] 08/03/2023 23:09:42 08/03/19 24 08/03/2023 COMPR EHENS CARLI METAB OLIC PANEL AST 18 U/L 15-37 normal Not Available Anamaria du [address] [place], [address] 08/03/2023 23:09:42 08/03/19 24 08/03/2023 COMPR EHENS CARLI METAB OLIC PANEL ALT 33 U/L 16-63 normal Not Available Anamaria [address] [place], [address] 08/03/2023 23:09:42 08/03/19 24 08/03/2023 TSH (W/RE F FT4) TSH (w/ref FT4) 1.02 uIU/m L 0.36-3 .74 normal Not Available [facility] [address] [place] [address] [place], [address], 08/03/2023 23:09:42 08/03/19 24 08/03/2023 COMPL ETE BLOOD COUNT W/DIF F WBC 16.03 10_3/ uL 4.4-10 .8 high Not Available [address] [place], [address] 08/03/2023 23:10:50 08/03/19 24 08/03/2023 COMPL ETE BLOOD COUNT W/DIF F RBC 5.19 10_6/ uL 4.36-5 .78 normal Not Available [address] [place], [address] 08/03/2023 23:10:50 08/03/19 24 08/03/2023 COMPL ETE BLOOD COUNT W/DIF F HGB 15.8 g/dL 13.5-1 7.5 normal Not Available [address] [place], [address] 08/03/2023 23:10:50 08/03/19 24 08/03/2023 COMPL ETE BLOOD COUNT W/DIF F HCT 47.8 % 40.0-5 0.0 normal Not Available [address] [place], [address] 08/03/2023 23:10:50 08/03/19 24 08/03/2023 COMPL ETE BLOOD COUNT W/DIF F MCV 92 fL 80-95 normal Not Available Anamaria du [address] [place], [address] 08/03/2023 23:10:50 08/03/19 24 08/03/2023 COMPL ETE BLOOD COUNT W/DIF F MCH 30.4 pg 27.0-3 3.0 normal Not Available [address] [place], [address] 08/03/2023 23:10:50 08/03/19 24 08/03/2023 COMPL ETE BLOOD COUNT W/DIF F MCHC 33.1 % 32.0-3 6.0 normal Not Available [address] [place], [address] 08/03/2023 23:10:50 08/03/19 24 08/03/2023 COMPL ETE BLOOD COUNT W/DIF F RDW 12.2 % 11.8-1 4.1 normal Not Available [address] [place], [address] 08/03/2023 23:10:50 08/03/19 24 08/03/2023 COMPL ETE BLOOD COUNT W/DIF F platelet count 353 10_3/ uL 130-40 0 normal Not Available [address] [place], [address] 08/03/2023 23:10:50 08/03/19 24 08/03/2023 COMPL ETE BLOOD COUNT W/DIF F MPV 9.6 fL 8.0-11 .0 normal Not Available [address] [place], [address] 08/03/2023 23:10:50 08/03/19 24 08/03/2023 COMPL ETE BLOOD COUNT W/DIF F neutrophils % 67.0 % Not Available [address] [place], [address] 08/03/2023 23:10:50 08/03/19 24 08/03/2023 COMPL ETE BLOOD COUNT W/DIF F lymphocytes % 14.0 % Not Available [address] [place], [address] 08/03/2023 23:10:50 08/03/19 24 08/03/2023 COMPL ETE BLOOD COUNT W/DIF F atypical lymphocytes % 2 % Not Available [address] [place], [address] 08/03/2023 23:10:50 08/03/19 24 08/03/2023 COMPL ETE BLOOD COUNT W/DIF F monocytes % 13.0 % Not Available [address] [place], [address] 08/03/2023 23:10:50 08/03/19 24 08/03/2023 COMPL ETE BLOOD COUNT W/DIF F eosinophils % 4.0 % Not Available [address] [place], [address] 08/03/2023 23:10:50 08/03/19 24 08/03/2023 COMPL ETE BLOOD COUNT W/DIF F basophils % 0.0 % Not Available [address] [place], [address] 08/03/2023 23:10:50 08/03/19 24 08/03/2023 COMPL ETE BLOOD COUNT W/DIF F immature grans % 0.0 % Not Available [address] [place], [address] 08/03/2023 23:10:50 08/03/19 24 08/03/2023 COMPL ETE BLOOD COUNT W/DIF F nucleated RBC 0.0 % 0.0-0. 3 normal Not Available [address] [place], [address] 08/03/2023 23:10:50 08/03/19 24 08/03/2023 COMPL ETE BLOOD COUNT W/DIF F absolute neutrophil count 10.74 10_3/ uL 1.2-6. 7 high Not Available [address] [place], [address] 08/03/2023 23:10:50 08/03/19 24 08/03/2023 COMPL ETE BLOOD COUNT W/DIF F absolute lymphocyte count 2.56 10_3/ uL 1.2-3. 4 normal Not Available [address] [place], [address] 08/03/2023 23:10:50 08/03/19 24 08/03/2023 COMPL ETE BLOOD COUNT W/DIF F absolute monocyte count 2.08 10_3/ uL 0.1-0. 8 high Not Available [address] [place], [address] 08/03/2023 23:10:50 08/03/19 24 08/03/2023 COMPL ETE BLOOD COUNT W/DIF F absolute eosinophil count 0.64 10_3/ uL 0.0-0. 7 normal Not Available [address] [place], [address] 08/03/2023 23:10:50 08/03/19 24 08/03/2023 COMPL ETE BLOOD COUNT W/DIF F absolute basophil count 0.00 10_3/ uL 0.0-0. 2 normal Not Available [address] [place], [address] 08/03/2023 23:10:50 08/03/19 24 08/03/2023 COMPL ETE BLOOD COUNT W/DIF F diff comment Manual Differ ential Not Available [address] [place], [address] 08/03/2023 23:10:50 08/03/19 24 08/03/2023 COMPL ETE BLOOD COUNT W/DIF F RBC morphology Normal Not Available [address] [place], [address] 08/03/2023 23:10:50 09/19/19 24 09/20/2023 URINE CULTU RE urine culture Urine Cultu re APPEA RADHA Mixed Gram Posit carli Coleman COLON Y COUNT Not Available [address] [place], [address] 09/20/2023 16:08:35 09/19/19 24 09/20/2023 URINE CULTU RE urine culture colon ies/m L <10,0 00 Day 1 Resul t ISOLA GINGER BELOW O:GPF M (ORGA NISM ID: 1.1) - GRAM POSIT CARLI COLEMAN ,MIXE D Urine Cultu re (ORGA NISM ID: 1.1) - COLON Y COUNT (ORGA NISM ID: 1.1) - <10,0 00 Not Available [address] [place], [address] 09/20/2023 16:08:35 09/19/19 24 09/21/2023 URINE CULTU RE urine culture Urine Cultu re APPEA RADHA Mixed Gram Posit carli Coleman APPEA RADHA Mixed Gram Posit carli Coleman COLON Y COUNT Not Available [address] [place], [address] 09/21/2023 08:15:57 09/19/19 24 09/21/2023 URINE CULTU RE urine culture colon ies/m L <10,0 00 COLON Y COUNT <10,0 00 Day 1 Resul t ISOLA GINGER BELOW Day 2 Resul t ISOLA GINGER BELOW O:GPF M (ORGA NISM ID: 1.1) - GRAM POSIT CARLI COLEMAN ,MIXE D Urine Cultu re (ORGA NISM ID: 1.1) - COLON Y COUNT (ORGA NISM ID: 1.1) - <10,0 00 Not Available [address] [place], [address] 09/21/2023 08:15:57 09/19/19 24 09/19/2023 urina lysis , dipst ick Leukocytes Modera te Not Available [address], [address], 09/19/2023 13:52:00 09/19/19 24 09/19/2023 urina lysis , dipst ick Nitrite negati ve Not Available [address] [place], [address], 09/19/2023 13:52:00 09/19/19 24 09/19/2023 urina lysis , dipst ick Urobilinogen .2 Not Available [address], [address], 09/19/2023 13:52:00 09/19/19 24 09/19/2023 urina lysis , dipst ick Protein Negati ve Not Available [address], [address], 09/19/2023 13:52:00 09/19/19 24 09/19/2023 urina lysis , dipst ick pH 5.0 Not Available [address], [address], 09/19/2023 13:52:00 09/19/19 24 09/19/2023 urina lysis , dipst ick Blood Modera te Not Available [address], [address], 09/19/2023 13:52:00 09/19/19 24 09/19/2023 urina lysis , dipst ick Specific [place] 1.025 Not Available [address], [address], 09/19/2023 13:52:00 09/19/19 24 09/19/2023 urina lysis , dipst ick Ketone Negati ve Not Available [address], [address], 09/19/2023 13:52:00 09/19/19 24 09/19/2023 urina lysis , dipst ick Bilirubin Negati ve Not Available [address], [address], 09/19/2023 13:52:00 09/19/19 24 09/19/2023 urina lysis , dipst ick Glucose Negati ve Not Available [address], [address], 09/19/2023 13:52:00 09/19/19 24 09/19/2023 urina lysis , dipst ick Appearance Clear Not Available [address], [address], 09/19/2023 13:52:00 09/19/19 24 09/19/2023 urina lysis , dipst ick Color Dark Yellow Not Available [address], [address], 09/19/2023 13:52:00 08/04/19 24 08/04/2023 XR, chest , 2 view Patien t Name: Micheal Doshi Unit #: [id number] Loc: DI Orderi ng Provid er: Maricarmen Sanchez Accoun t #: [id number] Status : REG CLI Primar y Care Provid er: Jud Nolan Date of Exam: 08/03 Sex: M Admiss ion Date: : 1955 Age: 67 Exam(s ) XR CHEST 2V PA LATERA L EXAM: XR CHEST 2V PA LATERA L CLINIC AL HISTOR Y: J98.01 Acute Bronch ospasm TECHNI QUE: 2D digita l imagin g was perfor med of the chest. Two images were obtain ed. PA and latera l views were obtain ed. COMPAR CAITLIN: No exams were availa ble for compar caitlin FINDIN GS: MEDIAS TINUM: Normal . HEART: Normal . PULMON CHARLEEN VASCUL ATURE: Normal . LUNGS: Clear. PLEURA L SPACE: No pleura l effusi on or pneumo thorax . BONE:W ithin normal limits for the patien t's age. OTHER FINDIN GS:[place] mal. IMPRES VERONIQUE: No acute pulmon charleen findin gs. DATA REPOSI TORY: RADIAT ION DOSE DELIVE RED: Ordere d By: Maricarmen Sanchez CC: ------ ------ ------ ------ ------ ------ ------ ------ ------ ------ ------ ------ - Dictat ed By: Gregor Pradhan M.D. 800 Transc ribed By: Gregor Pradhan 800 This is privil eged, confid ential inform ation intend ed only for the provid er named. Any use or distri bution by any person other than this provid er is strict ly prohib ited. If you receiv e this report in error, please notify us immedi ately at and return the origin al report to us at the addres s above. Thank- you. [email or web address] [facility] [address], [place], [address], 08/04/2023 12:05:19 08/04/19 24 08/04/2023 CT, abdom en + pelvi s, w/ contr ast No observ ation record ed. [email or web address] [facility] [address], [place], [address], 08/05/2023 13:23:25 08/04/19 24 08/04/2023 CT imagi ng repor t Patien t Name: Micheal Doshi Unit #: [id number] Loc: DI Orderi ng Provid er: Maricarmen Sanchez Accoun t #: [id number] Status : REG CLI Primar y Care Provid er: Jud Nolan Date of Exam: 08/03 Sex: M : 1955 Age: 67 Exam(s ) a CT:CT abdome n pelvis w Exam(s ) CT ABDOME N PELVIS W EXAM: CT ABDOME N PELVIS W CLINIC AL HISTOR Y: R10.9 Unspec ified abd pain TECHNI QUE: Imagin g Protoc ol: Axial comput ed tomogr aphy images with thomas l and sagitt al reform atted images were create d and review ed. CONTRA ST MATERI AL: Intrav enous: Omnipa que [address] volume :100 mL Oral: Yes COMPAR CAITLIN: No exams were availa ble for compar caitlin FINDIN GS: ABDOME N: Lung Bases: There is depend ent atelec tasis presen t. No focal consol idatin g infilt rates are seen. Liver: Normal densit y. There are severa l simple hepati c cysts. No suspic ious hepati c masses are presen t. Portal , Superi or Mesent nidia, and Spleni c Veins: Unrema rkable . Gallbl adder and Biliar y Tract: No radiod ense calcul us or dilati on. Pancre as: Normal densit y, no abnorm al calcif icatio ns or inflam matory proces s. Spleen : There are few tiny hypode nsitie s in the spleen . These may repres ent small cysts or charisse iomas. Adrena ls: No masses seen. Kidney s: Normal size, contou r and axis. No radiod ense stones or obstru ctive uropat hy. There are tiny hypode nsitie s seen in the kidney s bilate rally likely reflec ting cysts. No follow -up is recomm ended. Abdomi nal Aorta: Abdomi nal portio n non-di lated. Athero sclero tic calcif icatio n is presen t. Bowel: There are divert icula seen in the colon. There is bowel wall thicke sherrie seen in the mid sigmoi d colon with juliana lonic inflam matory change s most consis tent with acute divert iculit is. There is no eviden ce of bowel obstru ction. No eviden ce of append icitis . Perito brayden Cavity : No ascite s, collec tion or mesent nidia inflam matory respon se. No free air. Lymph Nodes: Within normal limits . Bones: Within normal limits for the patien t's age. Soft Tissue s: Unrema rkable . PELVIS : Bladde r: There is diffus e wall thicke sherrie of the urinar y bladde r. Reprod uctive Organs : The prosta te gland is enlarg ed. Lymph Nodes: Within normal limits . Bones: Within normal limits for the patien t's age. IMPRES VERONIQUE: 1. Findin gs most sugges tive of acute divert iculit is of the mid sigmoi d colon. No absces s or free air. A follow -up CT scan is recomm ended to docume nt resolu tion and to exclud e underl rachael proces s such as neopla sm. 2. Diffus e thicke sherrie of the wall of the urinar y bladde r. This may reflec t inflam mation from the adjace nt divert iculit is. This may also be due to underd istent ion. Unexpe cted findin RADIAT ION DOSE DELIVE RED: Total DLP DATA REPOSI TORY: All CT scans at this facili ty are submit apoorva to the [facility] al Radiol ogy Data Regist ry (NRDR) Dose Index Regist ry (DIR) with the [place] of Radiol ogy (ACR). RADIAT ION OPTIMI ZATION : All CT scans at this facili ty use at least one of these dose optimi zation techni ques: automa apoorva exposu re contro l; mA and/or kV adjust ment per patien t size (inclu jory target ed exams where dose is matche d to clinic al indica tion); or iterat carli recons tructi on. 010: Total DLP = 0.00 mGy-cm Ordere d By: Maricarmen Sanchez CC: ------ ------ ------ ------ ------ ------ ------ ------ ------ ------ ------ ------ ---- Dictat ed By: Gregor Pradhan M.D. 1054 1054 Transc ribed By: Gregor Pradhan 1054 This is privil eged, confid ential inform ation intend ed only for the provid er named. Any use or distri bution by any person other than this provid er is strict ly prohib ited. If you receiv e this report in error, please notify us immedi ately at and return the origin al report to us at the addres s above. Thank- you. [email or web address] [facility] [address], [place], [address] 08/04/2023 12:05:04 08/23/19 24 08/23/2023 CT, abdom en + pelvi s, w/ contr ast Patien t Name: Micheal Doshi Unit #: [id number] Loc: DI Orderi ng Provid er: Maricarmen Sanchez Accoun t #: [id number] Status : REG CLI Primar y Care Provid er: Jud Nolan Date of Exam: 08/22 Sex: M : 1955 Age: 67 Exam(s ) a CT:CT abdome n pelvis w Exam(s ) CT ABDOME N PELVIS W EXAM: CT ABDOME N PELVIS W CLINIC AL HISTOR Y: ABD PAIN, R10.9. TECHNI QUE: Imagin g Protoc ol: Axial comput ed tomogr aphy images with thomas l and sagitt al reform atted images were create d and review ed CONTRA ST MATERI AL: Intrav enous: Omnipa que-35 0 100cc Oral: Yes. Oral contra st was also admini stered for bowel opacif icatio n. COMPAR CAITLIN: CT CT ABDOME N PELVIS W from 2023 FINDIN GS: VISUAL IZED LUNG BASES: No nodule s nor pleura l effusi ons eviden t. ABDOME N: There is no ascite s. LIVER: Benign cysts in the liver again noted. No eviden ce of intrah epatic absces s. No dilate d intrah epatic ducts. GALLBL ADDER/ BILIAR Y: No obviou s gallbl adder pathol ogy. CBD is not dilate d. PANCRE : No eviden ce of pancre atic mass nor dilata tion of the pancre atic duct. SPLEEN : Spleen is not enlarg ed. No obviou s intras plenic lesion s. Spleni c and portal veins are patent . ADRENA LS: There are no signif icant adrena l masses . KIDNEY S:No cysts eviden t. No solid renal masses . No calcul i nor hydron ephros is.. ABDOMI NAL AORTA: Abdomi nal aorta is not enlarg ed. LYMPH NODES: There is no retrop eriton eal nor paraao rtic adenop athy. ABDOMI NAL WALL: No eviden ce of signif icant anteri or abdomi nal wall nor inguin al hernia . GI: There is extens carli divert iculos is of the sigmoi d again noted but there has been signif icant improv ement in the appear ance of the area of the sigmoi d involv ed with acute divert iculit is as seen on the CT scan of 2023. The amount of wall thicke sherrie and surrou nding inflam mation has signif icantl y decrea sed and there is no eviden ce of absces s. The wall of the urinar y bladde r is again noted be unifor mly thicke brandyn but there is no eviden ce to sugges t fistul ous commun icatio n betwee n the urinar y bladde r and the area which was involv ed with acute divert iculit is on the scan of 2023 (which now appear s improv ed). PELVIS : GI: No eviden ce of append icitis . LYMPH NODES: There is no intrap elvic nor inguin al adenop athy. REPROD UCTIVE : Prosta te is again noted to be enlarg ed. No vesicl es unrema rkable . There is no obtura tor adenop athy. URINAR Y BLADDE R: Unifor mly thicke brandyn wall. No divert iculi. . OSSEOU S: No fractu res and no signif icant osseou s lesion s. IMPRES VERONIQUE: 1. Compar ed to the prior CT scan of 2023 there has been signif icant improv ement in the acute divert iculit is of the sigmoi d which was eviden t at that time. There is still extens carli sigmoi d divert iculos is but the acute divert iculit is has signif icantl y improv ed and there is no eviden ce of free air nor absces s nor eviden ce of fistul ous commun icatio n to the adjace nt urinar y bladde r. There is no gas within the portal venous system and no eviden ce of absces s within the liver, realiz ing that divert iculit is is the most common cause of liver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
--- OUTSIDE RECORDS SUMMARY | 2023-11-02 14:58 | XMS_ITS | Continuity of Care Document ---
Author Organization [facility], [facility] Address [address] [place] [address] Assessment Encounter Date Assessment Date Assessment LastModified by Organization Details LastModified Time 09/19/2023 09/19/2023 - declines labs today - declines vaccines - A1C 5.7% 07/2023 [email or web address] Not available 09/19/2023 17:46:52 Plan of Treatment Reminders Order Date Submit Date Provider Last Modified By Organization Details Last Modified Time Details Appointments None recorded. Lab urinalysis , dipstick 2023 024 [email or web address] 1 [facility], [address] [facility], [place], [address], 4 17:47:50 culture, urine + sensitivit y 2023 024 [place] n21 [facility] (Registration ), [address] [place] [address] [place], [address], 4 07:32:41 Referral gastroente rologist referral - pt is due for colonoscop y and may benefit from EGD for dysphagia evaluation at same time - previous GI records not available. 2023 024 SCARLETT Hague Gastroenterol ogarron, [facility], [address], [address], 4 08:00:58 urologist referral 2023 024 [place] n21 [facility], [address], [address], [place], [address], 07:06:51 Procedures None recorded. Surgeries None recorded. Imaging None recorded. Medication Orders None recorded. Patient TargetsNo targets recorded. Patient InstructionsNo instructions recorded. Reason for Referral Physical Therapist Referral for Bilateral shoulder joint pain Patient has been experiencing bilateral shoulder pain after fall 2 quezada ago. Reports underlying rotator cuff injury. Not ready to have surgical intervention, would like to explore other physical therapy options Referring Physician: Maricarmen Flores [facility], Encounter Date: 08/03/2023 Outsole Paraffiner Referral for B ronchospasm Referring Physician: Maricarmen Flores [facility], Encounter Date: 08/03/2023 Urologist Referral for Blood in urine Referring Physician: Vicky Larson [facility], Encounter Date: 09/19/2023 Dish Up Person Referral for Dysphagia pt is due for colonoscopy and may benefit from EGD for dysphagia evaluation at same time - previous GI records not available. Referring Physician: Vicky Larson [facility], Encounter Date: 09/19/2023 Results Created Date Observation Date Name Description Value Unit Range Abnormal Flag Note LastModifiedBy Organization Detail LastModifiedTime 09/19/19 24 09/19/2023 urina lysis , dipst ick Leukocytes Modera te Not Available [address], [address], 09/19/2023 13:52:00 09/19/19 24 09/19/2023 urina lysis , dipst ick Nitrite negati ve Not Available [address], [address], 09/19/2023 13:52:00 09/19/19 24 09/19/2023 urina lysis , dipst ick Urobilinogen .2 Not Available [address], [address], 09/19/2023 13:52:00 09/19/19 24 09/19/2023 urina lysis , dipst ick Protein Negati ve Not Available [address], [address], 09/19/2023 13:52:00 09/19/19 24 09/19/2023 urina lysis , dipst ick pH 5.0 Not Available [address], [address], 09/19/2023 13:52:00 09/19/19 24 09/19/2023 urina lysis , dipst ick Blood Modera te Not Available [address], [address], 09/19/2023 13:52:00 09/19/19 24 09/19/2023 urina lysis , dipst ick Specific [place] 1.025 Not Available [address], [address], 09/19/2023 13:52:00 09/19/19 24 09/19/2023 urina lysis , dipst ick Ketone Negati ve Not Available [address], [address], 09/19/2023 13:52:00 09/19/19 24 09/19/2023 urina lysis , dipst ick Bilirubin Negati ve Not Available [address], [address], 09/19/2023 13:52:00 09/19/19 24 09/19/2023 urina lysis , dipst ick Glucose Negati ve Not Available [facility] [address], [address], 09/19/2023 13:52:00 09/19/19 24 09/19/2023 urina lysis , dipst ick Appearance Clear Not Available [facility] [address] [place], [address], 09/19/2023 13:52:00 09/19/19 24 09/19/2023 urina lysis , dipst ick Color Dark Yellow Not Available [address], [address], 09/19/2023 13:52:00 08/23/19 24 08/23/2023 CT, abdom en + pelvi s, w/ contr ast Patien t Name: Micheal Doshi Unit #: [id number] Loc: DI Orderi ng Provid er: Maricarmen Flores Accoun t #: [id number] Status : REG CLI Primar [...] al hernia . GI: There is extens jessee divert iculos is of the sigmoi d [...] at that time. There is still extens jessee sigmoi d divert iculos is but the [...] common cause of liver absces ses in [facility] a. 2. Other findin gs as above. RADIAT ION DOSE DELIVE RED: 636.47 mGy.cm Total DLP DATA REPOSI TORY: All CT scans at this facili ty are submit apoorva to the [facility] al Radiol ogy Data Regist ry (NRDR) Dose Index Regist ry (DIR) with the [facility] aranza Mariee e of Radiol ogy (ACR). RADIAT ION OPTIMI ZATION : All CT scans at this facili ty use at least one of these dose optimi zation techni ques: automa apoorva exposu re contro l; mA and/or kV adjust ment per patien t size (inclu jory target ed exams where dose is matche d to clinic al indica tion); or iterat jessee recons tructi on. 701- 013: Total DLP = 0.00 mGy-cm Ordere d By: Maricarmen Flores CC: ------ ------ ------ ------ ------ ------ ------ ------ ------ ------ ------ ------ ---- Dictat ed By: Corwin Vera M.D. 1831 Transc ribed By: Nahomy Vera MD 1831 This is privil eged, confid ential inform ation intend ed only for the provid er named. Any use or distri bution by any person other than this provid er is strict ly prohib ited. If you receiv e this report in error, please notify us immedi tulio at and return the origin al report to us at the addres s above. Thank- you. [email or web address] [facility] [address], [place], [address], 08/25/2023 10:49:46 Result Notes None recorded. Problems Name Problem SNOMED Code Status Onset Date Resolution Date Notes Provider Name and Address Organization Details Recorded Time History of retinal detachme nt 382752814 Active 2006 Not Available [facility] 4 05:36:45 Hyperlip idemia 01000918 Active 2013 Not Available [facility] 4 05:36:45 Pain of right shoulder joint 00468409126 710727 Active 2022 Problem Code: M25.511; Problem Code Type: ICD-10; Not Available [facility] 4 05:36:45 Pain of left shoulder joint 84027000705 413649 Active 2022 Problem Code: M25.512; Problem Code Type: ICD-10; Not Available [facility] 4 05:36:45 Hearing loss 56897623 Active 2022 Problem Code: H91.90; Problem Code Type: ICD-10; Not Available [facility] 4 05:36:45 Adult health examinat ion Active 2022 Problem Code: Z00.00; Problem Code Type: ICD-10; Not Available [facility] 4 05:36:46 Prediabe danika 295166301 Active 2022 Problem Code: R73.03; Problem Code Type: ICD-10; Not Available [facility] 4 05:36:46 History of clinical finding in subject 117753080 Completed 201312/01/2022 Not Available [facility] 4 05:36:46 Abdomina l pain 84446863 Active [address], [facility] [address] , [facility] 4 15:54:14 Bronchos pasm 1357700 Active [address], [facility] [address] , [facility] 4 16:08:54 Bilatera l shoulder joint pain 21798021683 663793 Active [address], [place] [address] , [facility] 4 16:09:10 Suprapub ic pain 309500540 Active [address], [place] [address] , [facility] 4 13:44:03 Blood in urine 09365760 Active [address], [address] 4 17:43:59 Dysphagi a 49107327 Active [address], [address] 4 17:44:29 Anxiety 95939088 Active [address], [facility] [address] [place] [address] 17:46:55 Notes:*Problem Name: L Catar act *ICD-10 Codes: *Problem Status: inactive *Comments: *Note Date: 07/12/2006 *Problem Name: L Retinal Detachme *ICD-10 Codes: *Problem Status: inactive *Comments: *Note Date: 07/12/2006 *Problem Name: L Cataract *ICD-10 Codes: *Problem Status: inactive *Comments: *Problem Code Type: CPT *Note Date: 07/12/2006 Problem Notes None recorded. Medical Equipment None Reported. Allergies Allergen ID Allergen Name Allergen Category Reaction Reaction Severity Criticality Documentation Date Start Date Code Code System Note Provider Name and Address Organization Details Recorded Time 00471 codeine medicatio n nausea Not available Not available 03/04/20232002 2670 RxNorm N/V Aller gyRea ction : 'N/V' ; Not Available [facility] 4 05:10:10 Medications Name Sig Start Date Stop [...] Address Organization Details Last Updated DateTime 4 166.37 cm 25 kg/m2 62627.4 4 g 97.9 [degF] 95 % 95 % 80 /min 122 mm[Hg] 78 mm[Hg] LETI CROCKER LPN [facility] 4 13:04:30 Social History Question Answer Notes LastModified by Organizat ion Details LastModified Time Tobacco Smoking Status Former Smoker MAYELIN GOODWIN, [facility] 08/03/2023 14:31:38 Do You Have An Advance Directive? No Declined AD Form Information not available 09/19/2023 Are You Currently Employed? Yes Information not available 09/19/2023 What Type Of Diet Are You Following? REGULAR Information not available 09/19/2023 What Is The Highest Grade Or Level Of School You Have Completed Or The Highest Degree You Have Received? [id number] Information not available 09/19/2023 What Is Your [...] Do You Have A Medical Power Of Night Clerk? No Information not available 09/19/2023 What Was The Date Of Your Most Recent Tobacco Screening? 08/03/2023 Information not available 08/03/2023 How Many Children Do You Have? 1 Information not available 09/19/2023 What Is Your Relationship Status? Domestic Partner Information not available 09/19/2023 Are You Sexually Active? Yes Information not available 09/19/2023 What Types Of Sporting Activities Do You Participate In? None Information not available 09/19/2023 Has Tobacco Cessation Counseling Been Provided? Yes [email or web address] Information not available 08/03/2023 On What Date Was Tobacco Cessation Counseling Provided? 08/03/2023 [email or web address] Information not available 08/03/2023 Are You Currently [...] HTN: Yes. HLD: Yes. CAD: M uncle [place] age 71. DM: Yes. Breast CA: MGM. Prostate CA: no. Colorectal CA: No, +polyps on maternal cousin. ETOH: yes. Mental illness: Yes, maternal side. Medical History No medical history recorded. Immunizations Vaccine Type Date Status Provider Name and Address Organization Details Recorded Time COVID-19, mRNA, LNP-S, PF, pediatric 25 mcg/0.25 mL dose 08/15/2020 completed Not Available [facility] 03/04/2023 05:33:20 Past Encounters Encounter ID Performer Location Encounter Start Date Encounter Closed Date Diagnosis/Indication Diagnosis SNOMED-CT Code Diagnosis ICD10 Code [id number] VICKY LARSON MD [address] [address] 09/19/2023 12:45:16 09/19/2023 14:42:00 Suprapubic pain 116774727 R10.30 Blood in urine 87229202 R31.9 Dysphagia 59872748 R13.1 0 Ex-cigarette smoker 2810 85267 Z87.891 Anxiety 54753608 F41.9 Health Concerns Section Related Observation LastModified by Organization Detai ls LastModified Time None Recorded Concern Status LastModified by Organization Details LastModified Time None Recorded Payers Encounter Date Sequence Insurance Name Policy Number Policy Arreola Covered Member ID Arreola Member ID Guarantor Name 09/19/2023 1 [place] [employer] Gregor Doshi [id number] Gregor Doshi Notes Date Note Type Note Provider Name and Address Organization Details Recorded Time 09/19/2023 text/html HPI Notes: SH: Anton rew up in [place]. Moved up to [place] in 1989. Lives in [place]. 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 He lost his [...] does have to pee a lot. VICKY LARSON MD [address], [place], [address], [facility]. 09/19/2023 17:48:07
[2023-11-02 15:11] LABS: ALT 46 U/L (16-63); AST 46 U/L (15-37); Albumin 3.8 g/dL (3.4-5.0); Alkaline Phosphatase 74 U/L (46-116); Anion Gap 8.9 mmol/L (3-11); BUN 14 mg/dL (7-18); Bilirubin, Total 0.36 mg/dL (0.2-1.0); CO2 27.1 mmol/L (21.0-32.0); Calcium 9.3 mg/dL (8.5-10.1); Chloride 102 mmol/L (98-107); Estimated GFR 83.01 (mL/min/1.73m2); Glucose 135 mg/dL (74-106); Lipase 63 U/L (16-77); Potassium 3.7 mmol/L (3.5-5.1); Sodium 138 mmol/L (136-145); Total Protein 7.2 g/dL (6.4-8.2)
[2023-11-02] MEDS: Normal Saline - Diluent 50 ML VIAL IJ (15:22)
[2023-11-02] MEDS: Omnipaque 350 MG/ML 100 ML BTL IJ (15:24)
== END 2023-11-02 16:18 | disposition home or self-care (01) ==
PROVIDERS: Emergency Provider Emergency Medicine; PCP Naturopath
DX: S39.81XA Other specified injuries of abdomen, initial encounter (principal); S30.1XXA Contusion of abdominal wall, initial encounter; W22.8XXA Striking against or struck by other objects, initial encounter
CPT/HCPCS: 74177; 80053; 83690; 85027; 86850; 86900; 86901; 96365; 99285; 71260; 85610; 99283; J0131; J3490